=== PATIENT | female | born 1950 | race Caucasian/White ===

== ENCOUNTER 2016-12-31 08:48 | Emergency (ER) | payer MEDICARE, MEDICAID ==
[2016-12-31 09:10] VITALS: BP 123/70
[2016-12-31] MEDS ORDERED: Tetan/Diph/Pertus SYR(Tdap)* 0.5 ML SYR(BOOSTRIX) use SYR IM ONE (09:30)
--- NOTE | 2017-02-01 10:35 | UC ---
Sav Michele Angela, scribed for Anna Wallace MD on 12/31/16 at 0925 . Skin Complaint HPI - HPI Summary HPI Summary: This pt is a 66 y/o female presenting to [facility] c/o tick bite on left chest wall noticed yesterday. Pt reports she noticed the tick last night and removed it last night. She is unsure of how long the tick was on her. She has used tree tea oil on it. Pt states a few days ago she noticed there was a baby tick on her legs. She notes that her dog has ran out of tick medication. Pt has brought in the tick with her in a bag to [facility]. She denies fever, chills. She states she is unsure of her last tetanus shot. Allergies: Niacin (reaction: pain down arm, morphine, and lipitor (reaction: muscular pain). Her PCP is [facility]. - History of Current Complaint Chief Complaint: UCSkin Time Seen by Provider: 12/31/16 09:15 Stated Complaint: TICK BITE Hx Obtained From: Patient Onset/Duration: Lasting Days Skin Exposure Onset/Duration: Days Ago Timing: Constant Location: Other - right chest wall Character: Redness - Allergy/Home Medications Allergies/Adverse Reactions: Allergies Allergy/AdvReac Type Severity Reaction Status Date / Time Atorvastatin [From Lipitor] Allergy Muscle Ache Verified 12/31/16 09:11 Morphine Allergy Rash Verified 12/31/16 09:11 Niacin Allergy Hives Verified 12/31/16 09:11 Review of Systems Constitutional: Negative Skin: Other - localized redness around tick bite Eyes: Negative ENT: Negative Respiratory: Negative Cardiovascular: Negative Gastrointestinal: Negative Genitourinary: Negative Motor: Negative Neurovascular: Negative Musculoskeletal: Negative Neurological: Negative Psychological: Negative Is Patient Immunocompromised?: No All Other Systems Reviewed And Are Negative: Yes PMH/Surg Hx/FS Hx/Imm Hx Other Endocrine History: DENIES: diabetes Cardiovascular History: Hypertension - Surgical History Surgical History: None - Family History Known Family History: Negative: Diabetes - Social History Alcohol Use: None Substance Use Type: None Smoking Status (MU): Never Smoked Tobacco Physical Exam Triage Information Reviewed: Yes Appearance: Well-Nourished Vital Signs: Initial Vital Signs Temp 98.2 F 12/31/16 09:00 Pulse 66 12/31/16 09:00 Resp 18 12/31/16 09:00 BP 123/70 12/31/16 09:00 Pulse Ox 100 12/31/16 09:00 Vital Signs Reviewed: Yes Eye Exam: Normal ENT Exam: Normal Respiratory Exam: Normal Respiratory: Positive: Chest non-tender, Lungs clear, Normal breath sounds, No respiratory distress, No accessory muscle use Cardiovascular Exam: Normal Cardiovascular: Positive: Other: - heart rate regular, good general skin color, good capillary refill Abdominal Exam: Normal Abdomen Description: Positive: Nontender, No Organomegaly, Soft Bowel Sounds: Positive: Present Musculoskeletal Exam: Normal Musculoskeletal: Positive: Strength Intact Neurological Exam: Normal - nonfocal, grossly intact Psychological Exam: Normal - conversing easily and appropriately Skin: Positive: Other - Left chest wall: 0.9 cm (width) x 0.7 cm (length) area of redness, slightly raised. Not fluctuant. Course/Dx - Course Course Of Treatment: Pt declined tetanus shot after the order was put in and her discharge instructions were printed. She will wait until she meets with her PCP. Reviewed coa / tx plan, recomendation for f/u. - Diagnoses Provider Diagnoses: tick bite Discharge - Discharge Plan Condition: Good Disposition: HOME Prescriptions: DOXYcycline CAP(*) [DOXYcycline 100MG CAP(*)] 100 mg PO DAILY #2 cap Patient Education Materials: Diphtheria/Acellular Pertussis/Tetanus Booster Vaccine (By injection), Tick Bite (ED) Referrals: Yelena BENAVIDES,Booker Sales [Primary Care Provider] - Additional Instructions: Please follow up with your primary care provider within 4 weeks. Eat bananas and drink water. Talk to your doctor about electrolytes. Seek medical attention for worse or new problems in the meantime. The documentation as recorded by the Sav wiseman Angela accurately reflects the service I personally performed and the decisions made by me, Anna Wallace MD.
== END 2016-12-31 09:40 | disposition home or self-care (01) ==
LOC: UCEAST 08:48
DX: S20.362A Insect bite (nonvenomous) of left front wall of thorax, initial encounter (principal); W57.XXXA Bitten or stung by nonvenomous insect and other nonvenomous arthropods, initial encounter; Y93.9 Activity, unspecified; Y92.9 Unspecified place or not applicable; I10 Essential (primary) hypertension; Z88.5 Allergy status to narcotic agent; Z88.8 Allergy status to other drugs, medicaments and biological substances
CPT/HCPCS: 90715; 99212; G0463

== ENCOUNTER 2017-10-26 19:16 | Emergency (ER) | payer MEDICARE, MEDICAID ==
[2017-10-26 19:36] VITALS: BP 113/70
[2017-10-26] MEDS ORDERED: BSS OPTH.SOL* BTL OPHTHALMIC ONE (19:53)
[2017-10-26] MEDS ORDERED: Fluorescein Sod TOPICAL 0.6* 0.6 MG TEST OPHTHALMIC ONE (19:53)
[2017-10-26] MEDS ORDERED: Tetracaine 0.5% OPTH.SOL 15ML* BTL LEFT EYE ONE (19:54)
--- NOTE | 2017-10-26 20:00 | UC ---
Eye Complaint HPI - HPI Summary HPI Summary: AFTER WEED WHACKING THIS AFTERNOON PATIENT TOOK A BANDANNA OFF HER HEAD AND SOMETHING FELL INTO HER LEFT EYE. SHE FLUSHED IT OUT WITH COPIOUS AMOUNTS OF WATER BUT STILL HAS FOREIGN BODY SENSATION AND PAIN WITH BLINKING. HAS CLEAR DRAINAGE. LEFT EYE IS RED AND IRRITATED. DENIES VISUAL DISTURBANCE. - History of Current Complaint Chief Complaint: UCEye Stated Complaint: FB IN EYE Time Seen by Provider: 10/26/17 19:37 Hx Obtained From: Patient Hx Last Menstrual Period: post menopausal Onset/Duration: Sudden Onset, Lasting Hours, Still Present Severity Initially: Moderate Severity Currently: Moderate Pain Intensity: 4 Pain Scale Used: 0-10 Numeric Character: Foreign Body Sensation Aggravating Factor(s): Blinking Alleviating Factor(s): Nothing Associated Signs And Symptoms: Positive: Drainage (Clear) - Allergies/Home Medications Allergies/Adverse Reactions: Allergies Allergy/AdvReac Type Severity Reaction Status Date / Time atorvastatin [From Lipitor] Allergy Muscle Ache Verified 10/26/17 19:37 morphine Allergy Rash Verified 10/26/17 19:38 niacin Allergy Hives Verified 10/26/17 19:38 Home Medications: Home Medications celeCOXIB CAP* [Celebrex CAP*] 10/26/17 [History] PMH/Surg Hx/FS Hx/Imm Hx Cardiovascular History: Hypertension - Surgical History Surgical History: None Surgery Procedure, Year, and Place: appendix out, C section, breast augmentation and removal - Family History Known Family History: Positive: Hypertension Negative: Diabetes - Social History Alcohol Use: Weekly Substance Use Type: None Smoking Status (MU): Never Smoked Tobacco Review of Systems Constitutional: Negative Eyes: Drainage, Eye Redness Respiratory: Negative Cardiovascular: Negative Gastrointestinal: Negative All Other Systems Reviewed And Are Negative: Yes Physical Exam Triage Information Reviewed: Yes Appearance: Well-Appearing, Well-Nourished, Pain Distress - MILD Vital Signs: Initial Vital Signs Temp 98.0 F 10/26/17 19:29 Pulse 74 10/26/17 19:29 Resp 16 10/26/17 19:29 BP 113/70 10/26/17 19:29 Pulse Ox 98 10/26/17 19:29 Vital Signs Reviewed: Yes Eyes: Positive: Conjunctiva Inflamed - LEFT EYE, Discharge - CLEAR DRAINAGE LEFT EYE, Other: - PERRL, EOMI. FLUORESCEIN UPTAKE LEFT CORNAL 6 O'CLOCK. ENT: Positive: Hearing grossly normal Neck: Positive: Supple Respiratory: Positive: No respiratory distress, No accessory muscle use Cardiovascular: Positive: Pulses Normal Abdomen Description: Positive: Soft Musculoskeletal: Positive: No Edema Neurological: Positive: Alert Psychological: Positive: Age Appropriate Behavior Skin: Negative: rashes Eye Complaint Course/Dx - Differential Dx/Diagnosis Provider Diagnoses: LEFT CORNEAL ABRASION Discharge - Sign-Out/Discharge Documenting (check all that apply): Patient Departure - Discharge Plan Condition: Stable Disposition: HOME Prescriptions: Erythromycin OPHTH.OINT* [Ilotycin OPHTH.OINT*] 1 applic LEFT EYE QID #1 tube Ketorolac 0.5% OPHTH (NF) 1 drop LEFT EYE QID PRN #1 btl PRN Reason: Pain Patient Education Materials: Corneal Abrasion (ED) Referrals: Yelena BENAVIDES,Booker Sales [Primary Care Provider] - If Needed Feng Nair MD [Medical Doctor] - 3 Days Additional Instructions: FOLLOW-UP WITH EYE DOCTOR IF YOU DEVELOP PURULENT DRAINAGE, SENSITIVITY TO LIGHT , FEVER, VISUAL DISTURBANCE OR ANY OTHER CONCERNING SYMPTOMS. - Billing Disposition and Condition Condition: STABLE Disposition: Home
[2017-10-26] MEDS ORDERED: Erythromycin TOPICAL GEL* 30 GM TUBE TOPICAL ONE (20:09)
[2017-10-26] MEDS ORDERED: Erythromycin OPTH OINT* APPLIC OINT ONE (20:23)
[2017-10-26] MEDS ORDERED: Erythromycin OPTH OINT* APPLIC OINT LEFT EYE ONE (20:24)
== END 2017-10-26 20:34 | disposition home or self-care (01) ==
LOC: UCEAST 19:16
DX: S05.02XA Injury of conjunctiva and corneal abrasion without foreign body, left eye, initial encounter (principal); X58.XXXA Exposure to other specified factors, initial encounter; Y93.9 Activity, unspecified; Y99.9 Unspecified external cause status; I10 Essential (primary) hypertension
CPT/HCPCS: 99213; A9270-GY; G0463

== ENCOUNTER 2017-11-24 10:06 | Emergency (ER) | payer MEDICARE, MEDICAID ==
[2017-11-24] MEDS ORDERED: NS 0.9% 1000 ML* 1,000 ML IV ONE (10:56)
[2017-11-24] MEDS ORDERED: Ketorolac INJ* 15 MG/ML 1 ML VIAL IV PUSH ONE (10:56)
--- NOTE | 2017-11-24 11:02 | ED ---
HPI Chest Pain - HPI Summary HPI Summary: Pt is a 67 y/o female who presents to the ED c/o chest pain since 10:00. She states she woke up this morning and suddenly had an 8/10 burning, stinging, hot , ripping, electrical sensation of her right breast. The pain then radiated to her right shoulder blade and back. Now, she states the pain is in her right vertebrae and states it feels like her back needs to be stretched or pulled. Pt states pain is worse with breathing. She recently has been sitting for long periods of time. PMHx lung nodules, but no blood clots. Pt used to have breast implants, and denies any changes in color of her breasts. She has not had a mammogram recently. Pt denies any LE pain. - History of Current Complaint Chief Complaint: EDGeneral Time Seen by Provider: 11/24/17 10:21 Hx Obtained From: Patient Hx Last Menstrual Period: post menopausal Onset/Duration: Started Hours Ago - 10:00, Still Present Timing: Constant Current Severity: Severe Pain Intensity: 8 Pain Scale Used: 0-10 Numeric Chest Pain Location: Discrete at: - Right breast Chest Pain Radiates: Yes Chest Pain Radiates To:: Back, Shoulder Character: Burning, Other: - Stinging, hot, ripping, electrical Aggravating Factor(s): Deep Breaths Alleviating Factor(s): Nothing Associated Signs and Symptoms: Positive: Chest Pain. Negative: Edema, Other: - LE pain - Allergy/Home Medications Allergies/Adverse Reactions: Allergies Allergy/AdvReac Type Severity Reaction Status Date / Time atorvastatin [From Lipitor] Allergy Muscle Ache Verified 11/24/17 10:19 morphine Allergy Rash Verified 11/24/17 10:19 niacin Allergy Hives Verified 11/24/17 10:19 PMH/Surg Hx/FS Hx/Imm Hx Cardiovascular History: Reports: Hx Hypercholesterolemia, Hx Hypertension Respiratory History: Reports: Other Respiratory Problems/Disorders - Lung nodules GI History: Reports: Hx Gastroesophageal Reflux Disease Neurological History: Reports: Other Neuro Impairments/Disorders - "bulging discs" Psychiatric History: Reports: Hx Anxiety - Surgical History Surgery Procedure, Year, and Place: appendix out, C section, breast augmentation and removal Infectious Disease History: No Infectious Disease History: Denies: Traveled Outside the [place] in Last 30 Days - Family History Known Family History: Positive: Hypertension Negative: Diabetes - Social History Alcohol Use: Weekly Hx Substance Use: No Substance Use Type: Reports: None Hx Tobacco Use: No Smoking Status (MU): Never Smoked Tobacco Review of Systems Positive: Other - Pain with breathing Positive: Myalgia - Right breast pain. Negative: Edema, Other - LE pain Neurological: Other - "electrical, stinging" pain All Other Systems Reviewed And Are Negative: Yes Physical Exam - Summary Physical Exam Summary: GENERAL: Patient is a well-developed and nourished F who is lying comfortable in the stretcher. Patient is not in any acute respiratory distress. HEAD AND FACE: Normocephalic EYES: PERRLA, EOMI x 2. EARS: Hearing grossly intact. MOUTH: Oropharynx within normal limits. NECK: Supple, trachea is midline, no adenopathy, no JVD, no carotid bruit. CHEST: Symmetric, no tenderness at palpation BREAST: No obvious swelling or deformity to the right breast, no lump palpable, no warmth or erythema, tenderness to palpation and anterior ribs. Above the right breast Neck: Tenderness to palpation along the right upper posterior ribs LUNGS: Clear to auscultation bilaterally. No wheezing or crackles. CVS: Regular rate and rhythm, S1 and S2 present, no murmurs or gallops appreciated. ABDOMEN: Soft. Bowel sounds are normal. No abdominal abnormal pulsations. Posterior rib area tender. EXTREMITIES: Full ROM in all major joints, no edema, no cyanosis or clubbing. NEURO: Alert and oriented x 3. No acute neurological deficits. Speech is normal and follows commands. SKIN: Dry and warm Triage Information Reviewed: Yes Vital Signs On Initial Exam: Initial Vitals Temp Pulse Resp BP Pulse Ox 98.6 F 57 17 145/81 99 11/24/17 10:15 11/24/17 10:15 11/24/17 10:15 11/24/17 10:15 11/24/17 10:15 Vital Signs Reviewed: Yes Diagnostics - Vital Signs Vital Signs Temp Pulse Resp BP Pulse Ox 11/24/17 10:15 98.6 F 57 17 145/81 99 - Laboratory Result Diagrams: 11/24/17 11:07 11/24/17 11:07 Lab Statement: Any lab studies that have been ordered have been reviewed, and results considered in the medical decision making process. - CT Chest/Thorax CTA CT Interpretation: No Acute Changes - 1. No CT of evidence of pulmonary embolism. 2. Chronic and degenerative changes described in the body the report unlikely to be related directly to the patient's current clinical presentation. ED physician reviewed radiology report. CT Interpretation Completed By: Radiologist - Ultrasound No standard instances Ultrasound Interpretation: No Acute Changes - Breast US: NO CYSTIC OR SOLID ABNORMALITIES ARE SEEN. RECOMMEND CLINICAL FOLLOW-UP OF THE PATIENT'S BREAST PAIN. ED physician reviewed radiology report. Ultrasound Interpretation Completed By: Radiologist - EKG 11:02 Cardiac Rate: Bradycardia - 52 bpm EKG Rhythm: Sinus Rhythm EKG Interpretation: LAD Re-Evaluation - Re-Evaluation First Eval Re-Evaluation Time: 13:44 Change: Unchanged Comment: Informed pt waiting for repeat Troponin. Second Eval Re-Evaluation Time: 14:50 Change: Unchanged Comment: Pt said she had a breast lift. Third Eval Re-Evaluation Time: 15:01 Change: Unchanged Comment: Informed patient - going to perform US. Chest Pain Course/Dx - Course Course Of Treatment: Pt is a 67 y/o female who presents to the ED c/o chest pain since 10:00. She states she woke up this morning and suddenly had an 8/10 burning, stinging, hot, ripping, electrical sensation of her right breast. The pain then radiated to her right shoulder blade and back. Now, she states the pain is in her right vertebrae and states it feels like her back needs to be stretched or pulled. Pt states pain is worse with breathing. Pt used to have breast implants, and denies any changes in color of her breasts. She has not had a mammogram recently. A physical exam revealed Posterior rib area tender. A chest/thorax CTA No CT of evidence of pulmonary embolism. Chronic and degenerative changes described in the body the report unlikely to be related directly to the patient's current clinical presentation. An EKG revealed bradycardia at a rate of 52 bpm, and LAD. An US revealed NO CYSTIC OR SOLID ABNORMALITIES ARE SEEN. 2 Sets of troponin were obtained and normal. The patient pain is most likely secondary to musculoskeletal/Pleurisy. Final dx is pleuritic chest pain. Pt will be discharged and is agreeable with this plan. Patient has a prescription for a mammogram which she will follow through with this week. - Diagnoses Provider Diagnoses: Pleuritic chest pain Discharge - Sign-Out/Discharge Documenting (check all that apply): Patient Departure - Discharge - Discharge Plan Condition: Stable Disposition: HOME Prescriptions: Cyclobenzaprine TAB* [Flexeril 10 MG TAB*] 10 mg PO TID PRN #16 tab PRN Reason: Pain Ibuprofen 800 mg PO TID #16 tablet Patient Education Materials: Pleurisy (ED), Costochondritis (ED) Referrals: Booker Duran [Primary Care Provider] - (1-3 days) Additional Instructions: RETURN TO THE EMERGENCY DEPARTMENT FOR CHANGING OR WORSENING SYMPTOMS. - Billing Disposition and Condition Condition: STABLE Disposition: Home - Attestation Statements Document Initiated by Scribe: Yes Documenting Scribe: Staci Mcclain Provider For Whom Bernice is Documenting (Include Credential): Priscila Marie MD Scribe Attestation: Staci Michele scribed for Priscila Marie MD on 11/25/17 at 0719. Scribe Documentation Reviewed: Yes Provider Attestation: The documentation as recorded by the Staci wiseman accurately reflects the service I personally performed and the decisions made by Priscila daniels MD
--- OUTSIDE RECORDS SUMMARY | 2017-11-24 11:07 | XMS REPORT | Continuity of Care Document ---
:1950 External Reference #:[id number] Author Name Oliva Fan Care Team Providers Name Role Phone Cristóbal Wilburn MD Care Team Information Cylinder Steamer Unavailable Booker Kirk PA Primary Care Physician Unavailable Payers Type Date Identification Numbers Payment Provider Subscriber Policy Number: [id number] Medicare Magali Valle PayID: [id number] [address] [place] [address] Policy Number: [id number] Medicaid Magali Valle PayID: [id number] [address] [place] [address] Advance Directives Description No Information Available Problems Date Description Provider Status Onset: 05/26/2012 Disturbance of salivary secretion Danita Pichardo PA Active Onset: 05/26/2012 Gastroesophageal reflux disease Danita Pichardo PA Active Family History Date Family Member(s) Problem(s) Comments General Heart Disease General Cancer Social History Type Date Description Comments Sex Unknown Marital Status Single Occupation Disabled Tobacco Use Start: Unknown Never Smoked Cigarettes ETOH Use Rarely consumes alcohol Recreational Drug Use Denies Drug Use Allergies, Adverse Reactions, Alerts Date Description Reaction Status Severity Comments 03/08/2010 Morphine Active low heart rate 03/08/2010 Niacin Active flushing/thick tounge 03/08/2010 Demerol Active vomiting 05/26/2012 Lipitor Active causes muscle pain Medications Medication Date Status Form Strength Qnty SIG Indications Ordering Provider Mupirocin 12/26/ Active Ointment 2% 1unit apply Cliff, 2016 s around [place], the nose M.D. twice daily 2 weeks Tessalon Perles 01/18/ Active Capsules 100mg 30cap one by Cliff, 2014 s mouth [place], every 8 M.D. hours Amitriptyline 00// Active Tablets 100mg Unknown HCL 0000 Lisinopril 00/ Active Tablets 20mg qday Unknown 0000 Lovastatin 00/00/ Active Tablets 40mg Unknown 0000 Hydroxyzine HCL / Active Tablets 1 by Unknown 0000 mouth twice a day as needed Omeprazole 01/18/ Hx Capsules DR 40mg 30cap 1 by Cliff 2014 - s mouth [place], 11/13/ every day M.D. 2018 Proair HFA 06/28/ Hx Aerosol 108(90Base 1unit 2puffs Yonya,Gi 2013 - ) mcg/Act s qid prn Lita abdi 01/17/ for sob 2014 Advair HFA 02/19/ Hx Aerosol 115-21mcg/ 1unit 1puff bid Trikha,Gi 2012 - Act s Lita abdi 2013 Asmanex 120 01/05/ Hx Aerosol 220mcg/Inh 1unit 1 puff Hollie A Metered Doses 2012 - s bid Roman, 02/19/ [employer] COMPENSATION [employer]ORDINATOR 2012 Advair Diskus 01/01/ Hx Aerosol 250-50mcg/ 1unit 1 puff Trikha,Gi 2013 - Dose s dillon abdi M.D 2012 Symbicort 12/18/ Hx Aerosol 80-4.5mcg/ 1unit 2 puff Trikha,Gi 2013 - Act s dillon abdi M.D 2012 Albuterol 12/18/ Hx Powder 1unit 2puffs Trifeleciaa,Gi Sulfate 2012 - s qid prsally abdi M.D 2013 Fluticasone 12/18/ Hx Suspension 50mcg/Act 1unit 2 sprays Corin,Gi Propionate 2012 - s jayleen abdi M.D 06/28/ nostrils 2013 qd Azelastine HCL 11/25/ Hx Solution 137mcg/Spr 1unit 2 sprays Cliff, 2011 - ay s each [place], 12/18/ nostril M.D. 2012 daily Evoxac 11/25/ Hx Capsules 30mg 90cap 1 po tid Cliff, 2011 - s prn [place], 01/25/ M.D. 2013 Evoxac 08/03/ Hx Capsules 30mg 180ca 1 po bid Cliff, 2010 - ps [place], 11/25/ M.D. 2011 Evoxac 06/29/ Hx Capsules 30mg 90cap 1 po tid Cliff, 2010 - s [place], 09/08/ M.DAgusto 2011 Flonase 06/08/ Hx Suspension 50mcg/Act 2unit 2 sprays Cliff, 2010 - s both [place], 11/25/ nostrils M.DAgusto 2011 qd 2 months Femhrt Low Dose / Hx Tablets 0.5-2.5mg- Unknown 0000 - mcg 2010 Lisinopril / Hx Tablets 10mg 1 po qd Unknown - 2010 Vytorin / Hx Tablets 10-10mg Unknown - 2011 Omeprazole / Hx Capsules DR 40mg 90cap 1 po qd Cliff, - s [place], 01/17/ M.D. 2014 Hormone / Hx Unknown Pill-PT. WCB 0000 - With Name 2012 Advair HFA / Hx Aerosol 115-21mcg/ 12uni 1puff bid Trikha,Gi 0000 - Act janelle abdi M.D 2014 Immunizations Description No Information Available Vital Signs Date Vital Result Comment 11/14/2017 2:23pm Weight 160.00 lb Height 62 inches 5'2" BMI (Body Mass Index) 29.3 kg/m2 BP Systolic 138 mmHg BP Diastolic 83 mmHg Heart Rate 61 /min O2 % BldC Oximetry 97 % Body Temperature 99.3 F Pain Level 8 12/26/2016 1:48pm Weight 153.12 lb Height 62 inches 5'2" BMI (Body Mass Index) 28.0 kg/m2 BP Systolic 129 mmHg BP Diastolic 81 mmHg Heart Rate 78 /min O2 % BldC Oximetry 95 % Body Temperature 98.5 F Pain Level 5 in nose 04/12/2015 2:31pm Weight 163.00 lb Height 62 inches 5'2" BMI (Body Mass Index) 29.8 kg/m2 BP Systolic 122 mmHg BP Diastolic 72 mmHg Heart Rate 77 /min O2 % BldC Oximetry 97 % Body Temperature 98.5 F 01/18/2015 12:49pm Weight 161.00 lb Height 62 inches 5'2" BMI (Body Mass Index) 29.4 kg/m2 BP Systolic 128 mmHg BP Diastolic 88 mmHg Heart Rate 82 /min O2 % BldC Oximetry 100 % Body Temperature 97.9 F 01/31/2014 4:19pm Weight 159.00 lb Height 62 inches 5'2" BMI (Body Mass Index) 29.1 kg/m2 BP Systolic 136 mmHg BP Diastolic 96 mmHg Heart Rate 86 /min O2 % BldC Oximetry 98 % Body Temperature 99.3 F 06/28/2013 10:05am Weight 158.50 lb Height 62 inches 5'2" BMI (Body Mass Index) 29.0 kg/m2 BP Systolic 118 mmHg BP Diastolic 80 mmHg Heart Rate 97 /min O2 % BldC Oximetry 95 % Body Temperature 99.4 F 02/19/2013 2:09pm Weight 153.00 lb Height 62 inches 5'2" BMI (Body Mass Index) 28.0 kg/m2 BP Systolic 120 mmHg BP Diastolic 76 mmHg Heart Rate 84 /min O2 % BldC Oximetry 94 % Body Temperature 97.7 F 01/01/2013 9:56am Weight 147.50 lb Height 62 inches 5'2" BMI (Body Mass Index) 27.0 kg/m2 BP Systolic 122 mmHg BP Diastolic 70 mmHg Heart Rate 82 /min O2 % BldC Oximetry 99 % Body Temperature 98.9 F 12/18/2012 10:45am Weight 148.12 lb Height 62 inches 5'2" BMI (Body Mass Index) 27.1 kg/m2 BP Systolic 106 mmHg BP Diastolic 80 mmHg Heart Rate 82 /min O2 % BldC Oximetry 97 % Body Temperature 99.6 F 05/26/2012 1:48pm Weight 162.00 lb Height 62 inches 5'2" BMI (Body Mass Index) 29.6 kg/m2 BP Systolic 130 mmHg BP Diastolic 86 mmHg Body Temperature 99.7 F 11/26/2011 2:10pm Weight 156.00 lb Height 62 inches 5'2" BMI (Body Mass Index) 28.5 kg/m2 BP Systolic 128 mmHg BP Diastolic 72 mmHg Heart Rate 78 /min O2 % BldC Oximetry 99 % Body Temperature 99.0 F 08/03/2010 2:30pm Weight 154.00 lb Height 62 inches 5'2" BMI (Body Mass Index) 28.2 kg/m2 BP Systolic 120 mmHg BP Diastolic 82 mmHg Heart Rate 90 /min O2 % BldC Oximetry 98 % Body Temperature 99.0 F 06/29/2010 9:42am Weight 157.00 lb BP Systolic 140 mmHg BP Diastolic 90 mmHg Heart Rate 89 /min O2 % BldC Oximetry 96 % Body Temperature 99.5 F Neck 13.5 inches, Epw 06/08/2010 10:24am Weight 156.00 lb Height 62 inches 5'2" BMI (Body Mass Index) 28.5 kg/m2 BP Systolic 134 mmHg BP Diastolic 84 mmHg Heart Rate 99 /min O2 % BldC Oximetry 99 % Body Temperature 97.5 F 03/08/2010 11:09am Weight 156.00 lb Height 62 inches 5'2" BMI (Body Mass Index) 28.5 kg/m2 BP Systolic 116 mmHg BP Diastolic 82 mmHg Heart Rate 84 /min O2 % BldC Oximetry 99 % Body Temperature 98.1 F 13 inch neck/epw-14 Results Test Date Facility Test Result H/L Range Note Laboratory test 04/24/2015 [facility] Nasal Mucosa Biopsy See Note [address] [place] [address] [phone] Order 12/18/2012 [facility] PFT PFT With <pending> [address] [place] [address] [phone] 1 OPERATION/PROCEDURE Biopsy DIAGNOSIS: "RIGHT NASAL TISSUE, EXCISION": - BENIGN CARTILAGE FRAGMENT. EP/clf 1000 GROSS Received in formalin in a properly labeled container with the patient's name and accession number designated, "RIGHT NASAL LESION". The specimen consists of a 0.5 x 0.5 x 0.1 cm. cruz, firm tissue. The specimen is inked, bisected and submitted entirely in one cassette. CC/clf PRE OPERATIVE DIAGNOSIS Right nasal lesion REVIEW CODE CODE: I Signed Electronically signed Ivette SOTOMAYOR MD 1039 Procedures Date Code Description Status 12/26/2016 93074 Nasal Endoscopy, Diag. Completed 04/24/2015 51796 Exc. Intranasal Lesion;Int.Approc Completed 04/24/2015 22824 Exc. Intranasal Lesion;Int.Approc Completed 04/24/2015 15860 Anesthesia, Nose & Accessory Sinus Surgery Not Otherwise Completed Spec 01/18/2015 22165 Fiberoptic Laryngoscopy,Diag. Completed 12/18/2012 56802 Diffusing Capacity Completed 12/18/2012 64642 Plethysmography Determination Lung Volumes & Per Airway Completed Resist 12/18/2012 08239 Bronchodilation Responsiveness Spirometry Pre/Post Completed Bronchodil Adm 05/26/2012 60317 Fiberoptic Laryngoscopy,Diag. Completed 11/26/2011 49436 Fiberoptic Laryngoscopy,Diag. Completed 06/29/2010 29977 Fiberoptic Laryngoscopy,Diag. Completed 06/08/2010 03584 Fiberoptic Laryngoscopy,Diag. Completed 04/15/2010 60398 Sleep Stage 4 Or More Cpap Titra Completed 03/25/2010 92102 Sleep Staging 4Or More Para Completed Encounters Type Date Location Provider Dx Diagnosis Office Visit 12/26/2016 Main Office [place] Coron[place] M.D. J34.1 Cyst and mucocele of 1:30p nose and nasal sinus J34.2 Deviated nasal septum J31.0 Chronic rhinitis Office Visit 04/12/2015 2:30p [facility] [place] Coronado J34.1 Cyst and mucocele Baljeet of nose and nasal sinus R91.1 Solitary pulmonary nodule K21.9 Gastro-esophageal reflux disease without esophagitis Office Visit 01/18/2015 1:00p [facility] [place] Coron[place] M.D. R05 Cough R06.00 Dyspnea, unspecified G47.33 Obstructive sleep apnea (adult) (pediatric) R91.1 Solitary pulmonary nodule Office Visit 01/31/2014 3:15p Main Office Mio Coombs M.D 327.23 Obstructive Sleep Apnea Adult & Pediatric 793.19 Other Nonspec Abnormal Finding Of Lung Field 493.90 Asthma Unspec W/O Status Asthmaticus 785.1 Palpitations Office Visit 06/28/2013 9:30a Main Office Mio Coombs M.D 493.90 Asthma Unspec W/O Status Asthmaticus 327.23 Obstructive Sleep Apnea Adult & Pediatric 793.11 Solitary Pulmonary Nodule Office Visit 02/19/2013 2:00p Main Office Mio Coombs M.D 493.90 Asthma Unspec W/O Status Asthmaticus 327.23 Obstructive Sleep Apnea Adult & Pediatric 793.11 Solitary Pulmonary Nodule Office Visit 01/01/2013 9:30a Main Office Mio Coombs M.D 493.90 Asthma Unspec W/O Status Asthmaticus 327.23 Obstructive Sleep Apnea Adult & Pediatric 793.11 Solitary Pulmonary Nodule Office Visit 12/18/2012 Main Office Mio Coombs M.D 786.09 Dyspnea & 10:30a Respiratory Abnormalities Other 786.2 Cough 784.91 Postnasal Drip 530.81 Esophageal Reflux 793.11 Solitary Pulmonary Nodule Office Visit 05/26/2012 2:00p [facility] [place], 527.7 Salivary Gland Danita, PA Secretion Disturbance 530.81 Esophageal Reflux Office Visit 11/26/2011 2:30p [facility] Marino 527.7 Salivary Gland Danita, PA Secretion Disturbance 530.81 Esophageal Reflux 327.23 Obstructive Sleep Apnea Adult & Pediatric Office Visit 08/03/2010 2:00p [facility] [place], 527.7 Salivary Gland M.D. Secretion Disturbance 530.81 Esophageal Reflux 327.23 Obstructive Sleep Apnea Adult & Pediatric Office Visit 06/29/2010 10:00a [facility] [place], 327.23 Obstructive Sleep M.D. Apnea Adult & Pediatric 530.81 Esophageal Reflux 527.7 Salivary Gland Secretion Disturbance Office Visit 06/08/2010 10:30a [facility] [place] Coron[place] 327.23 Obstructive Sleep M.D. Apnea Adult & Pediatric 472.0 Rhinitis Chronic 470 Deviated Nasal Septum 530.81 Esophageal Reflux Office Visit 03/08/2010 10:45a Main Office Bridger Romero MD 780.53 Apnea - W/ Hypersomnia, Unspecified Plan of Treatment No Information Available
[2017-11-24 11:24] LABS: ABS Basophils 0.1 10^3/ul (0-0.2); ABS Eosinophils 0.1 10^3/ul (0-0.6); ABS Lymphocytes 1.3 10^3/ul (1.0-4.8); ABS Monocytes 0.4 10^3/ul (0-0.8); ABS Neutrophils 2.7 10^3/ul (1.5-7.7); ABS Nucleated RBC 0 10^3/ul; Eosinophil % 1.4 % (0-6); Hematocrit 43 % (35-47); Hemoglobin 14.6 g/dl (12.0-16.0); Lymphocyte % 28.1 % (25-47); Mean Corpuscular HGB Conc 34 g/dl (31-36); Mean Corpuscular Hemoglobin 31 pg (27-31); Mean Corpuscular Volume 92 fL (80-97); Mean Platelet Volume 8.4 um3 (7.4-10.4); Nucleated Red Blood Cells % 0.1; Platelet Count 301 10^3/ul (150-450); Red Blood Count 4.71 10^6/ul (4.00-5.40); Red Cell Distribution Width 12 % (10.5-15); White Blood Count 4.5 10^3/ul (3.5-10.8)
[2017-11-24 11:33] LABS: INR 0.9 (0.77-1.02)
[2017-11-24 11:36] LABS: EGFR Non-African American 57.1 (>60)
[2017-11-24] MEDS ORDERED: Iodixanol* (CONTRAST) 320 MG/ML 100 ML SDV IV ONE (12:15)
--- NOTE | 2017-11-24 13:25 | RAD ---
INDICATION: Right-sided pleuritic chest pain. COMPARISON: None TECHNIQUE: Axial source images were acquired following the administration of 72 mL Visipaque [address] angiographic technique. Coronal and sagittal reconstructed images were constructed and reviewed. FINDINGS: There there are no filling defects in the pulmonary arteries to indicate acute pulmonary embolic disease. There are mild hypoventilatory changes in the dependent lungs bilaterally. There are no focal infiltrates or effusions. There are no pulmonary parenchymal masses. The heart is normal in size. There is no evidence of pericardial effusion. There is no evidence of aortic aneurysm or dissection. There is no mediastinal, hilar, or axillary lymphadenopathy. Degenerative changes of the thoracic spine includes loss of intervertebral disc height and marginal osteophyte formation. There is endplate sclerosis with vacuum disc phenomenon at T7/T8 and T8/T9 as well as T10/T11 anteriorly. Limited views of the upper abdomen show no abnormalities. IMPRESSION: 1. No CT of evidence of pulmonary embolism. 2. Chronic and degenerative changes described in the body the report unlikely to be related directly to the patient's current clinical presentation.
--- NOTE | 2017-11-24 15:46 | RAD ---
INDICATION: Right breast pain history of bilateral mastectomy with bilateral breast reconstruction surgery. COMPARISON: Comparison is made with a prior CT angiogram of the chest from November 24, 2017. TECHNIQUE: Multiple real time images of the right breast were obtained. FINDINGS: No cystic or solid abnormalities are seen. No significant areas of shadowing are noted. IMPRESSION: NO CYSTIC OR SOLID ABNORMALITIES ARE SEEN. RECOMMEND CLINICAL FOLLOW-UP OF THE PATIENT'S BREAST PAIN. ACR BIRADS Category 2: Benign
[2017-11-24 16:49] VITALS: BP 140/87
== END 2017-11-24 16:48 | disposition home or self-care (01) ==
LOC: ED 10:06
DX: R07.89 Other chest pain (principal)
CPT/HCPCS: 36415; 71275; 80053; 83605; 83735; 83880; 84484; 85025; 85610; 85730; 93005; 96374; 99283; J1885; Q9967

== ENCOUNTER 2018-09-23 15:59 | Emergency (ER) | payer MEDICARE, MEDICAID ==
[2018-09-23 16:35] VITALS: BP 135/80
--- NOTE | 2018-09-23 18:06 | UC ---
Ear Complaint HPI - HPI Summary HPI Summary: 68 y/o female presents to the urgent care c/o Cough for two months and a left earache that keeps her awake - History of Current Complaint Chief Complaint: UCRespiratory Stated Complaint: LEFT EARACHE AND JAW PAIN Time Seen by Provider: 09/23/18 18:05 Hx Obtained From: Patient Hx Last Menstrual Period: post menopausal Pain Intensity: 5 - Allergies/Home Medications Allergies/Adverse Reactions: Allergies Allergy/AdvReac Type Severity Reaction Status Date / Time atorvastatin [From Lipitor] Allergy Muscle Ache Verified 09/23/18 16:35 morphine Allergy Rash Verified 09/23/18 16:35 niacin Allergy Hives Verified 09/23/18 16:35 Home Medications: Home Medications Benzonatate CAP* [Tessalon 100 MG CAP*] 100 mg PO TID 09/23/18 [History Confirmed 09/23/18] Omeprazole 20 mg PO DAILY 09/23/18 [History Confirmed 09/23/18] Oxybutynin TAB* [Ditropan TAB*] 10 mg PO DAILY 09/23/18 [History Confirmed 09/23] Ranitidine TAB (NF) [Zantac TAB (NF)] 300 mg PO BEDTIME 09/23/18 [History Confirmed 09/23/18] Rosuvastatin (NF) [Crestor (NF)] 40 mg PO QPM 09/23/18 [History Confirmed ] PMH/Surg Hx/FS Hx/Imm Hx - Surgical History Surgical History: Yes Surgery Procedure, Year, and Place: appendix out, C section, breast augmentation and removal, cervical disc - Family History Known Family History: Positive: Hypertension Negative: Diabetes - Social History Alcohol Use: Weekly Substance Use Type: None Smoking Status (MU): Never Smoked Tobacco Physical Exam Vital Signs: Initial Vital Signs Temp 97.9 F 09/23/18 16:28 Pulse 70 09/23/18 16:28 Resp 18 09/23/18 16:28 BP 135/80 09/23/18 16:28 Pulse Ox 99 09/23/18 16:28 Ear Complaint Course/Dx - Differential Dx/Diagnosis Differential Diagnosis/HQI/PQRI: Bronchitis, Otitis Externa, Otitis Media, Perforated TM, URI, Other - GERD, bronchitis, pneumonia Provider Diagnosis: Left otitis media, GERD (gastroesophageal reflux disease) Discharge - Sign-Out/Discharge Documenting (check all that apply): Patient Departure - D/C home All imaging exams completed and their final reports reviewed: No Studies - Discharge Plan Condition: Stable Disposition: HOME Patient Education Materials: Ear Infection (ED) Referrals: Booker Kirk PA [Primary Care Provider] - 3 Days Cameron Hankins MD [Medical Doctor] - 3 Days Additional Instructions: 1- Please take the full course of the antibiotic to avoid resistance.Take yogurts w/ probiotics or Culturelle to protect your GI system 2-Please take tylenol PO q6-8hrs prn as instructed after meals to alleviate pain and swelling. Increase fluid intake, eat well, rest and avoid strenuous exercise 3- I think your chronic cough is related to your GERD. take Omeprazole PO and Zantac as directed as directed to alleviate symptoms. Avoid spicy food, chocolates, citric fruits, tomato sauce, etc. Avoid long periods of time w/o eating. increase fluid and eat soft meals until symptoms improve. Please f/u w / your PCP or GI Dr Hankins in 3 days for further evaluation and treatment in your GERD. 3-If symptoms of ear infection do not improve or worsen please f/u with your PCP for further evaluation and treatment. - Billing Disposition and Condition Condition: STABLE Disposition: Home
== END 2018-09-23 18:55 | disposition home or self-care (01) ==
LOC: UCEAST 15:59
DX: H66.92 Otitis media, unspecified, left ear (principal); K21.9 Gastro-esophageal reflux disease without esophagitis; Z88.5 Allergy status to narcotic agent
CPT/HCPCS: 99212; G0463

== ENCOUNTER 2018-11-16 00:20 | Emergency (ER) | payer MEDICARE, MEDICAID ==
[2018-11-16] MEDS ORDERED: diPHENhydraMINE IV* 50 MG/ML 1 ml VIAL (BENADRYL) SLOW PUSH ONE (01:02)
[2018-11-16] MEDS ORDERED: HYDROmorphone INJ1* 1 MG/ML SYRINGE IV SLOW PU ONE ×3 (01:02→08:00)
--- NOTE | 2018-11-16 01:02 | ED ---
Abdominal Pain/Female - HPI Summary HPI Summary: This patient was a 68 year old female presenting to [facility] with a chief complaint of abdominal pain. The patient states she was sitting on the couch watching TV 2 hours ago when the pain suddenly hit. She reports incontinence, chest pain, nausea and vomiting. She rates her pain 9/10 in severity. She thinks she may be having complications with her GERD. She has a surgical Hx of appendectomy. - History of Current Complaint Chief Complaint: EDAbdPain Stated Complaint: STOMACH PAIN PER PT Time Seen by Provider: 11/16/18 00:55 Hx Obtained From: Patient Hx Last Menstrual Period: post menopausal Onset/Duration: Lasting Hours Pain Intensity: 9 Pain Scale Used: 0-10 Numeric Location: Diffuse Allergies/Adverse Reactions: Allergies Allergy/AdvReac Type Severity Reaction Status Date / Time niacin Allergy Severe tongue Verified 11/16/18 00:31 swelling meperidine [From Demerol] Allergy Unknown Verified 11/16/18 00:31 Reaction Details morphine Allergy Rash Verified 11/16/18 00:31 atorvastatin [From Lipitor] AdvReac Muscle Ache Verified 11/16/18 00:31 PMH/Surg Hx/FS Hx/Imm Hx Endocrine/Hematology History: Denies: Hx Diabetes Cardiovascular History: Reports: Hx Hypercholesterolemia, Hx Hypertension Respiratory History: Reports: Other Respiratory Problems/Disorders - Lung nodules GI History: Reports: Hx Gastroesophageal Reflux Disease History: Denies: Hx Renal Disease Neurological History: Reports: Other Neuro Impairments/Disorders - "bulging discs" Psychiatric History: Reports: Hx Anxiety - Surgical History Surgery Procedure, Year, and Place: appendix out, C section, breast augmentation and removal, cervical disc - Immunization History Date of Tetanus Vaccine: unknown Infectious Disease History: Yes Infectious Disease History: Reports: Hx Shingles - ribs, 2015 Denies: Traveled Outside the [place] in Last 30 Days - Family History Known Family History: Positive: Hypertension Negative: Diabetes - Social History Alcohol Use: Weekly Hx Substance Use: No Substance Use Type: Reports: None Hx Tobacco Use: No Smoking Status (MU): Never Smoked Tobacco Review of Systems Positive: Chest Pain Positive: Abdominal Pain, Vomiting, Nausea Positive: incontinence All Other Systems Reviewed And Are Negative: Yes Physical Exam - Summary Physical Exam Summary: Appearance: Well-appearing, Well-nourished, lying in bed in obvious discomfort and appears colicky. Skin: Warm, dry, no obvious rash Eyes: sclera anicteric, no conjunctival pallor ENT: mucous membranes moist, pharynx appears normal Neck: Supple, nontender Respiratory: Clear to auscultation, no signs of respiratory distress Cardiovascular: Normal S1, S2. No murmurs. Normal distal pulses in tibial and radial bilaterally. Abdomen: Soft, RUQ tenderness, normal active bowel sounds present Musculoskeletal: Normal, Strength/ROM Intact Neurological: A&Ox3, awake and alert, mentation is normal, speech is fluent and appropriate Psychiatric: affect is normal, does not appear anxious or depressed Triage Information Reviewed: Yes Vital Signs On Initial Exam: Initial Vitals Temp Pulse Resp BP Pulse Ox 100.1 F 74 16 123/83 100 11/16/18 00:30 11/16/18 00:30 11/16/18 00:30 11/16/18 00:30 11/16/18 00:30 Vital Signs Reviewed: Yes Diagnostics - Vital Signs Vital Signs Temp Pulse Resp BP Pulse Ox 11/16/18 00:30 100.1 F 74 16 123/83 100 - Laboratory Result Diagrams: 11/16/18 01:31 11/16/18 01:31 Lab Statement: Any lab studies that have been ordered have been reviewed, and results considered in the medical decision making process. - CT Abd/Pel CT Interpretation Completed By: Radiologist Summary of CT Findings: Mild hiatial hernia. Mild to moderate fecal loading. No bowel dilatation or obstruction. ED Provider has reviewed this report. - EKG 0023 Cardiac Rate: NL EKG Rhythm: Sinus Rhythm - 80 BPM Summary of EKG Findings: NSR at 80 BPM, P waves, QRS complex, and T waves are within normal limits, T waves and intervals are normal, no ischemic changes. This is a normal EKG. Re-Evaluation - Re-Evaluation First Eval Re-Evaluation Time: 06:04 Change: Improved Comment: Patient feels much better. Patient has no abdominal tenderness. Abdominal Pain Fem Course/Dx - Course Course Of Treatment: This patient was a 68 year old female presenting to [facility] with a chief complaint of abdominal pain. CT Abd/Pel reveals Mild hiatial hernia. Mild to moderate fecal loading. No bowel dilatation or obstruction. Patient will be signed out to Dr. Salmeron pending gall bladder US. - Diagnoses Provider Diagnoses: Abdominal pain Discharge ED - Sign-Out/Discharge Documenting (check all that apply): Sign-Out Patient Signing out patient TO: Leroy Salmeron - At shift change 0700 pending gallbladder US. Patient Received Moderate/Deep Sedation with Procedure: No - Discharge Plan Condition: Stable Disposition: HOME Prescriptions: Ondansetron ODT TAB* [Zofran Odt TAB*] 4 mg PO Q6H PRN #20 tab.odt PRN Reason: Nausea/Vomiting oxyCODONE/Acetamin 5/325 MG* [Percocet 5/325 TAB*] 1 tab PO Q6H PRN #20 tab MDD 4 PRN Reason: Pain Patient Education Materials: Abdominal Pain (ED) Referrals: Booker Kirk PA [Primary Care Provider] - Cameron Hankins MD [Medical Doctor] - 11/24/18 Additional Instructions: Keep your appointment with Dr. Hankins on 11/24/18. Return to the Emergency Department for new or worsening symptoms. - Billing Disposition and Condition Condition: STABLE Disposition: Home - Attestation Statements Document Initiated by Bernice: Yes Documenting Rickyibe: Juan Pablo Sr Provider For Whom Bernice is Documenting (Include Credential): Leroy Avalos MD Scribe Attestation: Juan Pablo Michele, scribed for Leroy Avalos MD on 11/16/18 at 2333. Scribe Documentation Reviewed: Yes Provider Attestation: The documentation as recorded by the Juan Pablo wiseman accurately reflects the service I personally performed and the decisions made by me, Leroy Avalos MD Status of Scribe Document: Viewed
[2018-11-16] MEDS ORDERED: Ondansetron INJ* 2 MG/ML VIAL IV ONE (01:05)
[2018-11-16] MEDS: NS 0.9% 1000 ML** 2,000 ML IV ONE (01:14)
[2018-11-16 01:53] LABS: ABS Monocytes 1.2 10^3/ul (0-0.8); ABS Neutrophils 8.6 10^3/ul (1.5-7.7); Eosinophil % 0.4 %; Hematocrit 40 % (35-47); Hemoglobin 13.7 g/dL (12.0-16.0); Lymphocyte % 8.9 %; Mean Corpuscular HGB Conc 35 g/dL (31-36); Mean Corpuscular Hemoglobin 31 pg (27-31); Mean Corpuscular Volume 90 fL (80-97); Platelet Count 310 10^3/uL (150-450); Red Blood Count 4.41 10^6 /uL (3.70-4.87); Red Cell Distribution Width 13 % (10-15); White Blood Count 10.9 10^3/uL (3.5-10.8)
[2018-11-16 02:04] LABS: Albumin/Globulin Ratio 1.6 (1-3); BUN/Creatinine Ratio 10.1 (8-20); C Reactive Protein 1.19 mg/L (<8.01); Calcium 9.8 mg/dL (8.6-10.3); EGFR African American 36.3 (>60); Globulin 2.5 g/dL (2-4); Potassium 3.7 mmol/L (3.5-5.0); Total Bilirubin 0.6 mg/dL (0.2-1.0); Total Protein 6.5 g/dL (6.4-8.9)
[2018-11-16] MEDS ORDERED: Iodixanol* (CONTRAST) 320 MG/ML 100 ML SDV IV ONE (04:26)
[2018-11-16 05:21] LABS: Urine Appearance Clear; Urine Bacteria Absent (Absent); Urine Bilirubin Negative (Negative); Urine Blood 1+ (Negative); Urine Color Straw; Urine Glucose Negative (Negative); Urine Ketones Negative (Negative); Urine Nitrite Negative (Negative); Urine Protein 2+(100 mg/dL) (Negative); Urine Red Blood Cell Trace(0-2/hpf) (Absent); Urine Specific Gravity 1.004 (1.010-1.030); Urine Urobilinogen Negative (Negative); Urine White Blood Cell Trace(0-5/hpf) (Absent)
--- NOTE | 2018-11-16 07:45 | ED ---
Progress - Progress Note Progress Note: Patient signed out from Dr. Avalos upon shift change 11/16/18 07:00 pending gallbladder US. Gallbladder US, per radiologist: No evidence of cholelithiasis or biliary duct dilatation. Normal gallbladder. ED physician has reviewed this report. Re-Evaluation - Re-Evaluation First Eval Re-Evaluation Time: 08:00 Change: Worse Comment: Patient is still having some pain Second Eval Re-Evaluation Time: 09:32 Change: Improved Comment: Patient was informed that Gallbladder US was negative. Patient states she still has some pain although she feels better. She was offered admission to the hospitalist but patient declined admission and stated that she would like to go home. She agrees to prescription for pain medication. Patient agrees to keep her appointment with GI on 11/24/18. Patient was advised to return to the ED for new or worsening symptoms. Course/Dx - Diagnoses Provider Diagnoses: Abdominal pain Discharge ED - Sign-Out/Discharge Documenting (check all that apply): Patient Departure - Discharge Patient Received Moderate/Deep Sedation with Procedure: No - Discharge Plan Condition: Stable Disposition: HOME Prescriptions: Ondansetron ODT TAB* [Zofran Odt TAB*] 4 mg PO Q6H PRN #20 tab.odt PRN Reason: Nausea/Vomiting oxyCODONE/Acetamin 5/325 MG* [Percocet 5/325 TAB*] 1 tab PO Q6H PRN #20 tab MDD 4 PRN Reason: Pain Patient Education Materials: Abdominal Pain (ED) Referrals: Booker Kirk PA [Primary Care Provider] - Cameron Hankins MD [Medical Doctor] - 11/24/18 Additional Instructions: Keep your appointment with Dr. Hankins on 11/24/18. Return to the Emergency Department for new or worsening symptoms. - Billing Disposition and Condition Condition: STABLE Disposition: Home - Attestation Statements Document Initiated by Scribe: Yes Documenting Scribe: Daphne Blackmon Provider For Whom Bernice is Documenting (Include Credential): Leroy Salmeron MD Scribe Attestation: Daphne Michele, scribed for Leroy Salmeron MD on 11/16/18 at 1610. Scribe Documentation Reviewed: Yes Provider Attestation: The documentation as recorded by the Daphne wiseman accurately reflects the service I personally performed and the decisions made by me, Leroy Salmeron MD Status of Scribe Document: Viewed
[2018-11-16] MEDS ORDERED: Sucralfate TAB* 1 GM PO ONE (08:00)
[2018-11-16] MEDS ORDERED: Pantoprazole IV* 40 MG IV ONE (08:00)
[2018-11-16 09:34] VITALS: BP 121/69
== END 2018-11-16 10:07 | disposition home or self-care (01) ==
LOC: ED 00:20
DX: R10.11 Right upper quadrant pain (principal); K44.9 Diaphragmatic hernia without obstruction or gangrene; K56.41 Fecal impaction; R11.2 Nausea with vomiting, unspecified; R32 Unspecified urinary incontinence; I10 Essential (primary) hypertension; Z90.89 Acquired absence of other organs; Z88.5 Allergy status to narcotic agent; Z88.8 Allergy status to other drugs, medicaments and biological substances
CPT/HCPCS: 36415; 74177; 76705; 80053; 81003; 81015; 83605; 83690; 85025; 86140; 87086; 93005; 96361; 96374; 96375; 96376; 99283; A9270-GY; J1170; J1200; J2405; Q9967